=== PATIENT | male | born 1960 | race Caucasian/White ===

== ENCOUNTER 2024-01-09 20:15 | Inpatient (IN) | payer BC ==
[2024-01-09 21:15] LABS: #Basophils 0.03 10x3/uL (0.0-0.2); #Monocytes 1.33 10x3/uL (0.0-1.1); #Neutrophils 6.29 10x3/uL (1.5-8.4); %Basophils 0.3 % (0.0-2.0); %Lymphocytes 11.4 % (18.0-47.0); %Monocytes 15.3 % (0.0-10.0); %Neutrophils 72.5 % (40.0-75.0); Hematocrit 42.2 % (38.8-50.0); Hemoglobin 14.3 g/dL (13.5-17.5); Mean Corpuscular HGB CONC 33.9 g/dL (32.0-36.0); Mean Corpuscular Volume 82.6 fL (81.2-95.1); Mean Platelet Volume 9.4 fL (7.4-10.4); Platelet Count 147 10x3/uL (150-450); Red Blood Cell (RBC) Count 5.11 10x6/uL (4.32-5.72); White Blood Cell (WBC) Count 8.7 10x3/uL (3.5-10.5)
[2024-01-09 21:20] LABS: ALT (SGPT) 20 U/L (8-55); AST (SGOT) 28 U/L (5-34); Albumin 3.1 g/dL (3.4-4.8); Alkaline Phosphatase 63 U/L (40-110); Anion Gap 14 mmol/L (10-20); BUN (Urea Nitrogen) 22 mg/dL (8.4-25.7); Bilirubin, Total 0.9 mg/dL (0.2-1.2); Calc. Creatinine Clearance 0 mL/min (70-130); Calcium 8.7 mg/dL (7.8-10.44); Carbon Dioxide 17 mmol/L (23-31); Chloride 103 mmol/L (98-107); Estimated GFR 55; Globulin 3.4 g/dL (2.4-3.5); Glucose 120 mg/dL (80-115); Magnesium 1.4 mg/dL (1.6-2.6); Potassium 2.8 mmol/L (3.5-5.1); Protein, Total 6.5 g/dL (5.8-8.1); Sodium 131 mmol/L (136-145)
[2024-01-09 21:26] LABS: Troponin I 0.032 ng/mL (< 0.028)
[2024-01-09 21:32] LABS: SARS-CoV-2 E Target Negative; SARS-CoV-2 N2 Target Negative; SARS-CoV-2 NAA Rapid Test Not Detected (NotDetected); SARS-CoV-2 RdRP gene Negative
[2024-01-09] MEDS ORDERED: Ondansetron ODT 4 MG TAB PO PRN (22:26)
[2024-01-09] MEDS ORDERED: Acetaminophen 650 MG Suppository PR PRN (22:26)
[2024-01-09] MEDS ORDERED: cefTRIAXone (ROCEPHIN) 2 GM VIAL ONE (22:42)
[2024-01-09] MEDS ORDERED: Azithromycin 500 MG VIAL ONE (22:42)
[2024-01-09] MEDS ORDERED: Potassium Chloride 20 MEQ TAB ONE (22:42)
[2024-01-09 22:44] LABS: Influenza A by NAA Not Detected (NotDetected); Influenza B by NAA Not Detected (NotDetected); SARS-CoV-2 NAA Rapid Test Not Detected (NotDetected)
[2024-01-09] MEDS ORDERED: Magnesium 2 GM/50 ML BAG (IN WATER) ONE (23:35)
[2024-01-10 00:09] VITALS: BMI 29.3
[2024-01-10] MEDS: cefTRIAXone\\ROCEPHIN 2 GM in Sodium Chloride 0.9% 100 ML IVPB SCH (00:32)
[2024-01-10] MEDS: Azithromycin 500 MG in Sodium Chloride 0.9% 250 ML 250 ML IVPB SCH (00:32)
[2024-01-10] MEDS: traZODone HCl 50 MG TAB PO SCH (01:12)
[2024-01-10] MEDS: Magnesium 2 GM/50 ML(in water) 2 GM in Premix 1 BAG IVPB SCH (01:55)
[2024-01-10] MEDS: Potassium Chloride 20 MEQ in Premix 1 BAG IVPB SCH (02:20)
[2024-01-10] MEDS: Sodium Chloride 0.9% 1,000 ML IV SCH (02:21)
[2024-01-10 02:48] LABS: Hematocrit 41.4 % (38.8-50.0); Hemoglobin 13.9 g/dL (13.5-17.5); Mean Corpuscular HGB CONC 33.6 g/dL (32.0-36.0); Mean Corpuscular Hemoglobin 28.1 pg (27.0-33.0); Mean Corpuscular Volume 83.6 fL (81.2-95.1); Mean Platelet Volume 9.3 fL (7.4-10.4); Platelet Count 143 10x3/uL (150-450); RBC Distribution Width 13.4 % (11.5-14.5); Red Blood Cell (RBC) Count 4.95 10x6/uL (4.32-5.72); White Blood Cell (WBC) Count 8.7 10x3/uL (3.5-10.5)
[2024-01-10 02:58] LABS: Anion Gap 15 mmol/L (10-20); BUN (Urea Nitrogen) 19 mg/dL (8.4-25.7); Calc. Creatinine Clearance 94 mL/min (70-130); Calcium 8.5 mg/dL (7.8-10.44); Carbon Dioxide 20 mmol/L (23-31); Chloride 104 mmol/L (98-107); Estimated GFR 68; Glucose 113 mg/dL (80-115); Magnesium 1.6 mg/dL (1.6-2.6); Phosphorus 2.3 mg/dL (2.3-4.7); Potassium 3.5 mmol/L (3.5-5.1); Sodium 135 mmol/L (136-145)
[2024-01-10 03:49] LABS: Lymphocytes 6 % (21-51); Monocytes 18 % (0-10); Neutrophil 76 % (42-75)
[2024-01-10 03:50] LABS: Delete Auto Diff?? YES; Platelet Adequacy Comment Appears Adequate; RBC Morph Comment Within Normal Limits
[2024-01-10 07:18] LABS: Troponin I 0.021 ng/mL (< 0.028)
[2024-01-10] MEDS: Acetaminophen 325 MG TAB PO PRN (08:32)
[2024-01-10] MEDS: Enoxaparin 40 MG (0.4 mL) SYRINGE SC SCH (08:32)
[2024-01-10 13:50] LABS: Legionella Urinary Ag Negative (Negative)
[2024-01-10 13:52] LABS: Strep pneumo Urine Ag NEGATIVE (NEGATIVE)
[2024-01-10 16:48] LABS: Campy jejuni + coli by PCR Negative (Negative); STEC Shiga Toxin 1+2 Negative (Negative); Salmonella spp. by PCR Negative (Negative); Shigella spp + EIEC by PCR Negative (Negative)
[2024-01-11 04:55] LABS: Anion Gap 11 mmol/L (10-20); BUN (Urea Nitrogen) 11 mg/dL (8.4-25.7); Calc. Creatinine Clearance 124 mL/min (70-130); Calcium 8.3 mg/dL (7.8-10.44); Carbon Dioxide 20 mmol/L (23-31); Chloride 108 mmol/L (98-107); Estimated GFR 94; Glucose 113 mg/dL (80-115); Magnesium 1.8 mg/dL (1.6-2.6); Potassium 3.3 mmol/L (3.5-5.1); Sodium 136 mmol/L (136-145)
[2024-01-11] MEDS: Calcium Carbonate 500 MG ChewTAB PO PRN (05:23)
[2024-01-11 05:27] LABS: #Basophils 0.04 10x3/uL (0.0-0.2); #Monocytes 1.51 10x3/uL (0.0-1.1); #Neutrophils 6.36 10x3/uL (1.5-8.4); %Basophils 0.5 % (0.0-2.0); %Lymphocytes 8.7 % (18.0-47.0); %Monocytes 17.3 % (0.0-10.0); Hematocrit 37.8 % (38.8-50.0); Hemoglobin 12.7 g/dL (13.5-17.5); Mean Corpuscular HGB CONC 33.6 g/dL (32.0-36.0); Mean Corpuscular Hemoglobin 27.9 pg (27.0-33.0); Mean Corpuscular Volume 82.9 fL (81.2-95.1); Mean Platelet Volume 9.9 fL (7.4-10.4); Platelet Count 137 10x3/uL (150-450); RBC Distribution Width 13.6 % (11.5-14.5); Red Blood Cell (RBC) Count 4.56 10x6/uL (4.32-5.72); White Blood Cell (WBC) Count 8.7 10x3/uL (3.5-10.5)
[2024-01-11] MEDS: Benzonatate 100 MG CAP PO PRN (06:21)
[2024-01-11] MEDS ORDERED: Ipratropium/Albuterol 3 ML NEB NEB PRN (08:33)
[2024-01-11] MEDS: Pantoprazole DR 40 MG TAB PO SCH (08:50)
[2024-01-11] MEDS: Potassium Chloride 20 MEQ TAB PO SCH (08:50)
[2024-01-11] MEDS: Lorazepam 0.5 MG TAB PO PRN (08:56)
[2024-01-11] MEDS: Loperamide HCl 2 MG CAP PO PRN (08:56)
[2024-01-11] MEDS ORDERED: Iopamidol 370 76% 100 ML VIAL ONE (12:44)
[2024-01-11] MEDS: Ipratropium/Albuterol 3 ML NEB NEB SCH ×2 (13:55→14:02)
[2024-01-11] MEDS: Piperacillin/Tazobactam 3.375 GM in Sodium Chloride 0.9% 100 ML IVPB SCH ×2 (14:30→17:01)
[2024-01-11] MEDS ORDERED: Piperacillin/Tazobactam 3.375 GM in Sodium Chloride 0.9% 100 ML IVPB SCH (18:00)
[2024-01-11] MEDS: traZODone HCl 150 MG TAB PO SCH (22:05)
[2024-01-12 08:32] LABS: #Basophils 0.06 10x3/uL (0.0-0.2); #Monocytes 1.67 10x3/uL (0.0-1.1); #Neutrophils 5.36 10x3/uL (1.5-8.4); %Basophils 0.7 % (0.0-2.0); %Lymphocytes 19.1 % (18.0-47.0); %Monocytes 18.9 % (0.0-10.0); %Neutrophils 60.7 % (40.0-75.0); Hematocrit 36.1 % (38.8-50.0); Hemoglobin 12.3 g/dL (13.5-17.5); Mean Corpuscular HGB CONC 34.1 g/dL (32.0-36.0); Mean Platelet Volume 9.8 fL (7.4-10.4); Platelet Count 133 10x3/uL (150-450); RBC Distribution Width 13.7 % (11.5-14.5); White Blood Cell (WBC) Count 8.8 10x3/uL (3.5-10.5)
[2024-01-12 08:37] LABS: Anion Gap 14 mmol/L (10-20); BUN (Urea Nitrogen) 10 mg/dL (8.4-25.7); Calc. Creatinine Clearance 115 mL/min (70-130); Calcium 8.7 mg/dL (7.8-10.44); Carbon Dioxide 20 mmol/L (23-31); Chloride 105 mmol/L (98-107); Estimated GFR 86; Glucose 106 mg/dL (80-115); Sodium 136 mmol/L (136-145)
[2024-01-12] MEDS: Aspirin 81 mg Enteric Coated Tablet PO SCH (09:21)
[2024-01-12] MEDS: Potassium Chloride 20 MEQ TAB PO SCH ×2 (09:21→13:21)
[2024-01-12] MEDS: busPIRone HCl 5 MG TAB PO SCH (09:21)
[2024-01-12] MEDS: Ondansetron PF 4 MG/2 ML Vial IVP PRN (11:31)
[2024-01-12] MEDS: Rosuvastatin 10 MG TAB PO SCH (21:05)
[2024-01-13 04:02] LABS: #Basophils 0.06 10x3/uL (0.0-0.2); #Eosinphils 0.03 10x3/uL (0.0-0.5); #Monocytes 1.33 10x3/uL (0.0-1.1); #Neutrophils 5.02 10x3/uL (1.5-8.4); %Basophils 0.8 % (0.0-2.0); %Eosinophils 0.4 % (0.0-6.0); %Lymphocytes 15.5 % (18.0-47.0); %Monocytes 17.3 % (0.0-10.0); %Neutrophils 65.2 % (40.0-75.0); Hematocrit 36.6 % (38.8-50.0); Hemoglobin 12.2 g/dL (13.5-17.5); Mean Corpuscular HGB CONC 33.3 g/dL (32.0-36.0); Mean Corpuscular Hemoglobin 27.9 pg (27.0-33.0); Mean Corpuscular Volume 83.6 fL (81.2-95.1); Mean Platelet Volume 10.4 fL (7.4-10.4); Platelet Count 149 10x3/uL (150-450); RBC Distribution Width 13.7 % (11.5-14.5); Red Blood Cell (RBC) Count 4.38 10x6/uL (4.32-5.72); White Blood Cell (WBC) Count 7.7 10x3/uL (3.5-10.5)
[2024-01-13 04:05] LABS: Anion Gap 12 mmol/L (10-20); BUN (Urea Nitrogen) 9 mg/dL (8.4-25.7); Calc. Creatinine Clearance 111 mL/min (70-130); Calcium 8.6 mg/dL (7.8-10.44); Carbon Dioxide 21 mmol/L (23-31); Chloride 106 mmol/L (98-107); Estimated GFR 83; Glucose 130 mg/dL (80-115); Potassium 3.2 mmol/L (3.5-5.1); Sodium 136 mmol/L (136-145)
[2024-01-13] MEDS: Potassium Chloride 20 MEQ TAB PO SCH ×2 (09:12→22:45)
[2024-01-13 17:37] LABS: Potassium 3.1 mmol/L (3.5-5.1)
[2024-01-13] MEDS: busPIRone HCl 5 MG TAB PO SCH (21:12)
[2024-01-14 05:00] LABS: #Basophils 0.05 10x3/uL (0.0-0.2); #Eosinphils 0.16 10x3/uL (0.0-0.5); #Monocytes 1.04 10x3/uL (0.0-1.1); #Neutrophils 3.86 10x3/uL (1.5-8.4); %Basophils 0.7 % (0.0-2.0); %Eosinophils 2.3 % (0.0-6.0); %Lymphocytes 25.7 % (18.0-47.0); %Monocytes 14.9 % (0.0-10.0); %Neutrophils 55.4 % (40.0-75.0); Hematocrit 36.6 % (38.8-50.0); Hemoglobin 11.9 g/dL (13.5-17.5); Mean Corpuscular HGB CONC 32.5 g/dL (32.0-36.0); Mean Corpuscular Hemoglobin 27.3 pg (27.0-33.0); Mean Corpuscular Volume 83.9 fL (81.2-95.1); Platelet Count 177 10x3/uL (150-450); RBC Distribution Width 13.9 % (11.5-14.5); Red Blood Cell (RBC) Count 4.36 10x6/uL (4.32-5.72)
[2024-01-14 05:11] LABS: Anion Gap 12 mmol/L (10-20); BUN (Urea Nitrogen) 8 mg/dL (8.4-25.7); Calc. Creatinine Clearance 120 mL/min (70-130); Carbon Dioxide 24 mmol/L (23-31); Chloride 108 mmol/L (98-107); Estimated GFR 91; Glucose 92 mg/dL (80-115); Potassium 3.9 mmol/L (3.5-5.1); Sodium 140 mmol/L (136-145)
[2024-01-14 09:48] VITALS: BP 136/82; TEMP 98.3
== END 2024-01-14 10:08 | disposition home or self-care (01) | DRG 177 ==
LOC: CSHERS 20:15 → CSHTELE 22:26 → OBSVTOIN 01-11 16:01
PROVIDERS: ADMIT Family Medicine; ATTEND Internal Medicine
DX: J69.0 Pneumonitis due to inhalation of food and vomit (principal); J96.00 Acute respiratory failure, unspecified whether with hypoxia or hypercapnia; I24.89 Other forms of acute ischemic heart disease; N17.9 Acute kidney failure, unspecified; I10 Essential (primary) hypertension; R19.7 Diarrhea, unspecified; F41.1 Generalized anxiety disorder; E87.6 Hypokalemia
CPT/HCPCS: 36415; 71045; 71275; 80048; 80053; 83735; 83880; 84100; 84145; 84443; 84484; 85025; 87040; 87070; 87205; 87324; 87449; 87505; 87899; 93005; 93306; 94640; 94760; 94762; 96372; 96374; 96375; 96376; G0378; J0456; J0696; J1650; J2405; J2543; J3475; J3480; J7030; J7050; J7620; Q9967; U0002